=== PATIENT | male | born 1940 | race Two or more races ===

== ENCOUNTER 2017-02-23 10:57 | Emergency (ER) | payer OTHER ==
[2017-02-23 11:18] VITALS: BP 140/88; PULSE 83; TEMP 98.4; BMI 18.4
--- NOTE | 2017-02-23 12:25 | PDOC ---
History of Present Illness <Brian Dove - Last Filed: 02/23/17 14:11> - General History Source: Patient Exam Limitations: No Limitations - History of Present Illness Initial Comments: 02/23/17 16:45 Patient is a 76 year old male with a significant past medical history of COPD, GERD, BPH, who presents to the ED s/p fall that occurred yesterday afternoon. Patient reports fall occurred yesterday afternoon while at home. Patient states experiencing intermittent episodes of dizziness that began 2 weeks ago. He reports dizziness begins when standing too quickly then resolves. He states he was cleaning something up when he turned around, felt dizzy and fell. Patient states hitting his head edge of coffee table secondary to fall. He reports holding object in right arm while falling which struck hist chest. PAtient reports right chest pain secondary to fall. No shoulder pain, numbness/ tingling/weakness, sob, headache, n/v, vision changes, dysathria. Pt notes the dizziness is similar to something he has had several years ago, that he was given meds for and resolved it. Pt denies any current dizziness. Denies headache, neck pain. Denies nausea, vomiting. Denies palpitations. Denies any other symptoms. Allergies: None Surgical history: None Social history: Lives alone. No smoking. No alcohol. No illicit drugs. PMD: Dr. Cornell <Isiah Brown - Last Filed: 02/23/17 16:46> - General Chief Complaint: Injury Stated Complaint: FALL/ CHEST INJURY Time Seen by Provider: 02/23/17 11:36 Past History - Past Medical History Anemia: No Asthma: No Cancer: No Cardiac Disorders: No CVA: No COPD: Yes (EMPHESEMA) CHF: No Dementia: No Diabetes: No GI Disorders: Yes (GERD) Disorders: Yes (BPH) HTN: No Hypercholesterolemia: No Liver Disease: No Seizures: No Thyroid Disease: No - Surgical History Abdominal Surgery: No Appendectomy: No Cardiac Surgery: No Cholecystectomy: No Lung Surgery: No Neurologic Surgery: No Orthopedic Surgery: No - Immunization History Immunization Up to Date: Yes - Suicide/Smoking/Psychosocial Hx Smoking History: Current every day smoker Have you smoked in the past 12 months: Yes Number of Cigarettes Smoked Daily: 5 Information on smoking cessation initiated: No 'Breaking Loose' booklet given: 01/27/15 Hx Alcohol Use: No Drug/Substance Use Hx: No Substance Use Type: Alcohol Hx Substance Use Treatment: No <Brian Dove - Last Filed: 02/23/17 14:11> <KevinIsiah - Last Filed: 02/23/17 16:46> - Past Medical History Allergies/Adverse Reactions: Allergies Allergy/AdvReac Type Severity Reaction Status Date / Time No Known Drug Allergies Allergy Verified 02/23/17 13:06 Home Medications: Ambulatory Orders Albuterol Sulfate Inhaler - [Ventolin HFA Inhaler -] 1 - 2 inh PO Q4H #1 inhaler 01/31/15 Pantoprazole Sodium [Protonix -] 40 mg PO DAILY #4 tablet.ec 01/31/15 Albuterol Sulfate [Proair Respiclick] 108 mcg IH QID 03/09/16 Tiotropium Offerman [Spiriva Respimat] 2.5 gm IH BID 03/09/16 Review of Systems - Review of Systems Able to Perform ROS?: Yes Comments:: 02/23/17 16:45 CONSTITUTIONAL: No reported: Fever, Chills, Diaphoresis, Generalized Weakness, Malaise, Loss of Appetite HEENT: +Head injury No reported: Rhinorrhea, Nasal Congestion, Throat Pain, Throat Swelling, Difficulty Swallowing, Mouth Swelling, Ear Pain, Eye Pain, Visual Changes CARDIOVASCULAR: +Right sided chest pain. No reported: Syncope, Palpitations, Irregular Heart Rate, Peripheral Edema RESPIRATORY: No reported: Cough, Shortness of Breath, SOB with Exertion, Orthopnea, Wheezing , Stridor, Hemoptysis GASTROINTESTINAL: No reported: Abdominal pain, Abdominal Distension, Nausea, Vomiting, Diarrhea, Constipation, Melena, Hematochezia GENITOURINARY: No reported: Dysuria, Frequency, Urgency, Hesitancy, Flank Pain, Genital Pain MUSCULOSKELETAL: No reported: Myalgia, Arthralgia, Joint Swelling, Back pain, Neck Pain SKIN: No reported: Rash, Itching, Pallor HEMATOLOGIC/IMMUNOLOGIC: No reported: Easy Bleeding, Easy Bruising, Lymphadenopathy, Frequent infections ENDOCRINE: No reported: Unexplained Weight Gain, Unexplained Weight Loss, Heat Intolerance , Cold Intolerance NEUROLOGIC: +Dizziness (resolved) No reported: Headache, Focal Weakness, Paresthesias, Vertigo, Unsteady Gait, Seizure, Mental Status Changes, Incontinence PSYCHIATRIC: No reported: Anxiety, Depression All Other Systems: Reviewed and Negative <Isiah Brown - Last Filed: 02/23/17 16:46> *Physical Exam - Vital Signs Last Vital Signs Temp Pulse Resp BP Pulse Ox 98.4 F 83 20 140/88 96 02/23/17 11:12 02/23/17 11:12 02/23/17 11:12 02/23/17 11:12 02/23/17 11:12 <DerrellBrian francis - Last Filed: 02/23/17 14:11> - Vital Signs Last Vital Signs Temp Pulse Resp BP Pulse Ox 98.4 F 83 20 140/88 96 02/23/17 11:12 02/23/17 11:12 02/23/17 11:12 02/23/17 11:12 02/23/17 11:12 - Physical Exam Comments: 02/23/17 16:45 GENERAL: The patient is awake, alert, and fully oriented, Nontoxic - in no acute distress. HEAD: Normocephalic, abrasion on R brow without focal tenderness, no crepitus or stepoffs EYES: extraocular movements intact, sclera anicteric, conjunctiva clear. ENT: Normal voice, Moist mucous membranes. NECK: Normal range of motion, supple LUNGS/CHEST: Mild tenderness to the R chest, Breath sounds equal, clear to auscultation bilaterally. No wheezes, no rhonchi, no rales. HEART: Regular rate and rhythm, normal S1 and S2 without murmur, rub or gallop. ABDOMEN: Soft, nontender, normoactive bowel sounds. No guarding, no rebound. . No CVA tenderness EXTREMITIES: Normal range of motion, no edema. No clubbing or cyanosis. No cords, erythema, or tenderness. NEUROLOGICAL: No facial assymetry, Normal speech, Back: No midline tenderness to the cervical, thoracic or lumbar spine Musculoskelatal: FROM of b/l shoulders, elbows, wrist. FROM of hips, knees, ankles - No signs of ecchymosis, erythema, or crepitus noted on palpation extremities, chest wall, clavicals, ribs, back. PSYCH: Normal mood, normal affect. SKIN: Warm, Dry, normal turgor, <Isiah Brown - Last Filed: 02/23/17 16:46> Heart Score/ECG Review - ECG Impressions Comment:: 02/23/17 14:11 Twelve-lead EKG was performed and reviewed by me. There is normal sinus rhythm with a normal rate. Rate of 69 Occasional PVCs noted Left anterior fascicular block <Brian Dove - Last Filed: 02/23/17 14:11> ED Treatment Course - LABORATORY CBC & Chemistry Diagram: 02/23/17 13:00 02/23/17 13:00 <Brian Dove - Last Filed: 02/23/17 14:11> - LABORATORY CBC & Chemistry Diagram: 02/23/17 13:00 02/23/17 13:00 - ADDITIONAL ORDERS Additional order review: Laboratory Results 02/23/17 13:00 Sodium Cancelled Potassium Cancelled Chloride Cancelled Carbon Dioxide Cancelled Anion Gap Cancelled BUN Cancelled Creatinine Cancelled Creat Clearance w eGFR Cancelled Random Glucose Cancelled Calcium Cancelled Total Bilirubin Cancelled AST Cancelled ALT Cancelled Alkaline Phosphatase Cancelled Total Protein Cancelled Albumin Cancelled 02/23/17 13:00 RBC Cancelled MCV Cancelled MCHC Cancelled RDW Cancelled MPV Cancelled Neutrophils % Cancelled Lymphocytes % Cancelled Monocytes % Cancelled Eosinophils % Cancelled Basophils % Cancelled - Medications Given in the ED: ED Medications Discontinued Medications Generic Name Dose Route Start Last Admin Trade Name Castillo PRN Reason Stop Dose Admin Acetaminophen 650 mg 02/23/17 12:46 02/23/17 13:20 Tylenol - PO 02/23/17 12:47 650 mg ONCE ONE Administration <Isiah Brown - Last Filed: 02/23/17 16:46> Medical Decision Making - Medical Decision Making 02/23/17 12:47 76y M hx of OCPD, gerd, bph presents with complaints of R sided chest pain The pt states that he was feeling fine, was rearranging his cabinets, when he turned around, felt dizzy/vertigo, and fell down. He hit his head on the coffee table and felt stunned for a few seconds but there was no LOC. The pt also struck his R chest with his arm. The patient denies avisoin changes, n/v, numbnes/tingling/weakness. pt states he has had vertigo in the past but resolved with meds. On exam the pt has a small abrasion on his R brow without focal tendneress no focal neuro finidgns to sugest cva/cerbellar pathology +focal tenderness to his R chest tylenol for pain ct head due to being elderly w/ head injury will ck basic labs to r/o anemia, metabolic denrage,ment UA to r/o uti will erassess A portion of this note was documented by scribe services under my direction. I have reviewed the details of the note, within reason, and agree with the documentation with the following case summary and management plan written by me 02/23/17 14:12 The patient's chest x-ray reveals no signs of fracture. The patient's blood work hemolyzed and the patient refuses a CT head, he does not have any headache, blurry vision, nausea, vomiting. All the came is for an x -ray. I discussed with the patient in Turkmen as well as with his nephew that there is a risk of occult bleed as he is elderly, also risk of anemia, metabolic derangements. The patient states that he did have blood work done by his primary care doctor doctor in 4 months ago as well as by his urologist 1 month ago and states that everything looked fine. He states that he needs to go to [place] pickup his granddaughter and does not want any further workup here. he understands that there is the risk of missed pathology but still wants to leave. <Brian Dove - Last Filed: 02/23/17 14:11> *DC/Admit/Observation/Transfer - Discharge Dispostion Admit: No <Brian Dove - Last Filed: 02/23/17 14:11> - Attestations Scribe Attestion: 02/23/17 16:46 Documentation prepared by Isiah Brown, acting as medical secretary for Brian Dove MD, MD/DO. <Isiah Brown - Last Filed: 02/23/17 16:46> Diagnosis at time of Disposition: Head injury due to trauma Qualifiers: Encounter type: initial encounter Qualified Code(s): S09.90XA - Unspecified injury of head, initial encounter Chest wall contusion Qualifiers: Encounter type: initial encounter Laterality: right Qualified Code(s): S20.211A - Contusion of right front wall of thorax, initial encounter - Discharge Dispostion Disposition: HOME Condition at time of disposition: Stable - Referrals Referrals: Steffen Burrows MD [Primary Care Provider] - - Patient Instructions Printed Discharge Instructions: DI for Chest Pain, DI for Closed Head Injury Additional Instructions: Regrese inmediatamente al departamento de emergencias con CUALQUIER sntoma nuevo, persistente o empeoramiento que incluya dolor de brian, mareos, cambios en la visin, entumecimiento u hormigueo / debilidad u otras inquietudes. teresa tylneol para tu dolor de brian DEBE llamar y seguir con schmidt mdico maana para veronica evaluacin adicional de grazyna s ntomas. Los resultados fueron discutidos contigo. Asegrese de que schmidt mdico revise los resultados de schmidt evaluacin de emergencia. Return to the emergency department immediately with ANY new, persistent or worsening symptoms including headache, dizziness, vision changes, numbness/ tingling/weakness or other concerns. take tylneolfor your headache You MUST call and follow up with your doctor tomorrow for further evaluation of your symptoms. Results were discussed with you. Please make sure your doctor reviews the results of your emergency evaluation. Print Language: YAKUT
[2017-02-23] MEDS ORDERED: ACETAMINOPHEN 325 MG TABLET (FP) PO ONE (12:46)
[2017-02-23] MEDS ORDERED: ACETAMINOPHEN 325 MG TABLET (FP) ONE (13:11)
--- NOTE | 2017-02-24 09:12 | EKG ---
Test Reason : Blood Pressure : / mmHG Vent. Rate : 069 BPM Atrial Rate : 069 BPM P-R Int : 134 ms QRS Dur : 088 ms QT Int : 384 ms P-R-T Axes : 035 -54 037 degrees QTc Int : 411 ms SINUS RHYTHM WITH OCCASIONAL PREMATURE VENTRICULAR COMPLEXES LEFT ANTERIOR FASCICULAR BLOCK ABNORMAL ECG WHEN COMPARED WITH ECG OF 28-JAN-2015 10:17, NO SIGNIFICANT CHANGE WAS FOUND Confirmed by THALIA FISHER MD ([id number]) on 02/24/2017 9:11:49 AM Referred By: Confirmed By:THALIA FISHER MD
== END 2017-02-23 14:38 | disposition home or self-care (01) ==
LOC: JER 10:57
DX: S09.90XA Unspecified injury of head, initial encounter (principal); S20.211A Contusion of right front wall of thorax, initial encounter; K21.9 Gastro-esophageal reflux disease without esophagitis; J43.9 Emphysema, unspecified; N40.0 Benign prostatic hyperplasia without lower urinary tract symptoms; F17.210 Nicotine dependence, cigarettes, uncomplicated; W18.30XA Fall on same level, unspecified, initial encounter; Y93.89 Activity, other specified; Y92.009 Unspecified place in unspecified non-institutional (private) residence as the place of occurrence of the external cause
CPT/HCPCS: 71020-TC; 93005; 93010; 99282-25